=== PATIENT | male | born 1975 | race Caucasian/White ===

== ENCOUNTER 2017-01-16 16:47 | Inpatient (IN) | payer OTHER ==
[~2017-01-16] VITALS: Ht 175.3 cm; Wt 99.8 kg
--- NOTE | ~2017-01-16 | DS ---
Unit #: [id number] #: [id number] Patient: ZOEY FIELD [id number] [place] [address] [id number] MR#: [id number] NAME: ZOEY FIELD ROOM: P252 Age: 41 Sex: M Admission Date: 01/16/2017 : 1975 Discharge Date: 01/18/2017 Attending Physician: Guerrero Sanchez M.D. Primary Care Physician: Generic Doctor Not In System DISCHARGE SUMMARY REASON FOR ADMISSION Mr. Field is a 41-year-old man, who initially presented reporting increasing stress in the community, caused by finances and his difficulty keeping up with his child support payments. He expressed suicidal ideation with a plan to jump off a bridge and could not contract for safety. He was readmitted for stabilization. DIAGNOSTIC STUDIES Laboratory data, please see hospital chart. HOSPITAL COURSE The patient was admitted and placed on Zoloft 50 mg daily for reported diagnosis of posttraumatic stress disorder. The patient refused to take this medication; however, reporting the following day that it had "made him worse" when he had taken it in the past. We, therefore, changed this to paroxetine 20 mg at bedtime, and agreed to provide the patient with ibuprofen and baclofen for his chronic pain which he stated that he had been taking in the outpatient setting. Later that afternoon, the patient went to the nursing staff, and requested to be discharged AGAINST MEDICAL ADVICE, stating that he did not feel like the hospital milieu was helpful, and that we were not providing the services he wanted. He was interviewed by nursing staff and was felt to give a reliable contract for safety at that time. He was discharged AGAINST MEDICAL ADVICE at his request. DISCHARGE DIAGNOSES [place] I Posttraumatic stress disorder, chronic. [place] II Antisocial personality disorder. [place] III Chronic pain. [place] IV [place] V INSTRUCTIONS TO PATIENT Follow up with community mental health and primary care physician. DISCHARGE MEDICATIONS None. CONDITION AT DISCHARGE Fair. PROGNOSIS [place]. Unit #: [id number] #: [id number] Patient: ZOEY FIELD DIET AND ACTIVITY Per primary care doctor. Dictated by... Guerrero Sanchez M.D. EMA/betty TD: 01/22/2017 06:41 JOB #: [id number] DISCHARGE SUMMARY Page 1 of 1 X Guerrero Sanchez MD DISCHARGE SUMMARY
--- NOTE | ~2017-01-16 | HP ---
Unit #: [id number] #: [id number] Patient: ZOEY FLANAGAN [id number] [place] [address] [id number] MR#: [id number] NAME: ZOEY FLANAGAN ROOM: P252 Age: 41 Sex: M Admission Date: 01/16/2017 : 1975 Attending Physician: Guerrero Sanchez M.D. Admitting Physician: Guerrero Sanchez M.D. Primary Care Physician: Generic Doctor Not In System HISTORY AND PHYSICAL HISTORY OF PRESENT ILLNESS Zoey is a 41 year old admitted to [address] [place] [address] with depression and verbalizing wanting to hurt himself. PAST MEDICAL HISTORY Nothing significant. PAST SURGICAL HISTORY Nothing reported. ALLERGIES No known drug allergies. SOCIAL HISTORY He denies cigarettes, alcohol and illicit drug use. FAMILY HISTORY Medically noncontributory. REVIEW OF SYSTEMS CONSTITUTIONAL: No fever or chills. HEENT: Denies any sore throat, ear pain or runny nose. CARDIOVASCULAR: Denies chest pain, irregular heart rhythm or palpitations. CHEST: Denies shortness of breath or cough. No hemoptysis. GASTROINTESTINAL: Denies nausea, vomiting, diarrhea or chronic constipation. ENDOCRINE: Denies history of increased thirst or urination. No recent significant weight loss or gain. GENITOURINARY: Denies dysuria, frequency, or hematuria. SKIN: Denies any rashes. HEMATOLOGIC: Denies history of increased bleeding or bruising. MUSCULOSKELETAL: Denies any hot, swollen joints. No generalized muscle pain. NEUROLOGIC: Denies problems with vision or speech. No frequent, severe headaches. No numbness, tingling or weakness in any extremities. Denies loss of bladder or bowel control. CURRENT MEDICATIONS 1. Zoloft 50 mg daily. 2. Desyrel p.r.n. 3. Milk of Magnesia p.r.n. 4. Maalox p.r.n. 5. Tylenol p.r.n. Unit #: [id number] #: [id number] Patient: ZOEY FLANAGAN PHYSICAL EXAMINATION GENERAL: Alert, well-nourished, in no apparent distress. VITAL SIGNS: Blood pressure 136/82, heart rate 90, respirations 16, temperature 98.6. WEIGHT: 220. HEIGHT: 5 feet 9 inches. SKIN: Warm and dry without rash or lesion. HEENT: Normocephalic. TMs not viewed. Oral and nasal passages clear. Conjunctivae clear. PERRLA. EOMs intact. NECK: Supple without lymphadenopathy or thyromegaly. HEART: Regular rate and rhythm without murmur. LUNGS: Clear. ABDOMEN: Soft, nontender. : Not done. EXTREMITIES: No evidence of cyanosis, clubbing or edema. Moves all without focal deficit. NEUROLOGICAL: Grossly within normal limits. Cranial Nerves: II: Visual palmer are intact. III, IV AND : Extraocular movements are intact. Pupils are equal, round and reactive to light. V: Facial sensation is grossly normal. VII: Facial movements and expression are normal. VIII: Auditory acuity grossly intact. IX, X: Uvula is midline. Phonation is normal. XI: Patient shrugs shoulders and turns head normally. XII: Tongue protrudes in the midline. Sensory and Motor Function: Sensory and motor sensation is grossly normal. Motor: moves all extremities well. Coordination: Gait is normal. Deep Tendon Reflexes: Intact. IMPRESSION Psychiatric admission. RECOMMENDATIONS PSYCHIATRIC: Per psychiatrist. MEDICAL: See no contraindication to participate in facility's activities. MEDICAL PROGNOSIS Good. MEDICAL CONDITION Stable. Dictated by... Symone Nunez PRuchiARuchi-Branden. for [place] Weller/cristopher TD: 01/17/2017 15:13 JOB #: [id number] Unit #: [id number] #: [id number] Patient: ZOEY FLANAGAN HISTORY AND PHYSICAL Page 1 of 1 X Symone Nunez HISTORY AND PHYSICAL
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
== END 2017-01-18 14:45 | disposition home or self-care (01) | DRG 882 ==
LOC: P2L 19:29
DX: F43.12 Post-traumatic stress disorder, chronic (principal); F60.2 Antisocial personality disorder; G89.29 Other chronic pain